=== PATIENT | female | born 1985 | race Caucasian/White ===

== ENCOUNTER 2018-05-16 19:29 | Emergency (ER) | payer MEDICAID ==
[2018-05-16 19:33] VITALS: BMI 41.5
[2018-05-16 19:41] VITALS: TEMP 98.6
[2018-05-16 20:31] LABS: URINE BILIRUBIN NEGATIVE (NEGATIVE); URINE BLOOD LARGE (NEGATIVE); URINE GLUCOSE (UA) NEGATIVE (NEGATIVE); URINE LEUKOCYTE ESTERASE MODERATE Leu/uL (NEGATIVE); URINE PROTEIN 30 mg/dL (<30 mg/dL)
[2018-05-16 20:32] LABS: URINE APPEARANCE SLIGHT-CLOUDY (CLEAR); URINE COLOR YELLOW (YELLOW)
[2018-05-16 20:36] LABS: URINE BACTERIA MOD (NEG); URINE WBC 20 - 25 /hpf (0-6)
--- NOTE | 2018-05-16 20:36 | ED PDOC ---
Arrival/HPI - General Chief Complaint: Female Genitourinary Time Seen by Provider: 05/16/18 19:47 Historian: Patient - History of Present Illness Narrative History of Present Illness (Text): 05/16/18 20:19 32 year old female, whose past medical history includes lupus, and 5 multiple ovarian cyst removals, who presents to the ED complaining of abdominal pain. Patient notes associated dysuria, urinary frequency, burning with urination, and white vaginal dicharge. Patient notes she was at [facility] for 3-4 days, 1 month ago for abdominal pain. Patient has a hysterectomy in 1 month. Patient states motrin and percocet gives minimal relief. Patient denies any nausea, vomiting, diarrhea, back pain, neck pain, or any other complaints. Time/Duration: Prior to Arrival Symptom Onset: Gradual Symptom Course: Unchanged Activities at Onset: Light Context: Home Past Medical History - Provider Review Nursing Documentation Reviewed: Yes - Infectious Disease Hx of Infectious Diseases: None - Tetanus Immunization Tetanus Immunization: Unknown - Cardiac Hx Congestive Heart Failure: Yes Hx Hypertension: Yes - Pulmonary Hx Asthma: Yes - Neurological Hx Neurological Disorder: No - HEENT Hx HEENT Disorder: No Hx Blind: No - Renal Hx Renal Disorder: No - Endocrine/Metabolic Hx Hypothyroidism: Yes Hx Systemic Lupus Erythematosus: Yes - Musculoskeletal/Rheumatological Hx Musculoskeletal Disorders: No - Gastrointestinal Hx Gastrointestinal Disorders: Yes Hx Fatty Liver Disease: Yes - Genitourinary/Gynecological Hx Genitourinary Disorders: Yes Other/Comment: ovarian cysts - removed/recurrent. ruptured cyst - Psychiatric Hx Depression: No Hx Substance Use: No - Surgical History Other/Comment: ovarian cyst removal - Anesthesia Hx Anesthesia: Yes Hx Anesthesia Reactions: No Hx Malignant Hyperthermia: No - Suicidal Assessment Feels Threatened In Home Enviroment: No Family/Social History - Physician Review Nursing Documentation Reviewed: Yes Family/Social History: Unknown Family HX Smoking Status: Never Smoked Hx Alcohol Use: No Hx Substance Use: No Hx Substance Use Treatment: No Allergies/Home Meds Allergies/Adverse Reactions: Allergies shellfish derived Allergy (Verified 05/16/18 19:33) ANGIOEDEMA Home Medications: Home Meds Medication Instructions Recorded Confirmed Acetaminophen with Codeine 1 tab PO Q6H PRN 05/16/18 05/16/18 [Tylenol with Codeine #3 Tablet] Cholecalciferol [Vitamin D 1000 IU] 2,000 unit PO DAILY 05/16/18 05/16/18 Ibuprofen [Motrin Tab] 1 tab PO TID PRN 05/16/18 05/16/18 Losartan Potassium [Losartan 1 tab PO DAILY 05/16/18 05/16/18 Potassium] Mycophenolate Mofetil [Cellcept] 1 tab PO BID 05/16/18 05/16/18 Prednisone [Steve] 1 tab PO BID 05/16/18 05/16/18 oxyCODONE/Acetaminophen [Percocet 1 tab PO Q4H PRN 05/16/18 05/16/18 5/325 mg Tab] Review of Systems - Physician Review All systems were reviewed & negative as marked: Yes - Review of Systems Constitutional: Normal Eyes: Normal ENT: Normal Respiratory: Normal. absent: SOB, Cough Cardiovascular: Normal. absent: Chest Pain Gastrointestinal: Normal, Abdominal Pain. absent: Nausea, Vomiting Genitourinary Female: Dysuria, Frequency, Other (burning with urination) Musculoskeletal: Normal. absent: Back Pain, Neck Pain Skin: Normal. absent: Rash Neurological: Normal. absent: Headache, Dizziness Endocrine: Normal Hemo/Lymphatic: Normal Psychiatric: Normal Physical Exam Vital Signs Reviewed: Yes Vital Signs Temp Pulse Resp BP Pulse Ox 05/17/18 03:03 20 99 05/17/18 01:58 88 20 138/90 99 05/16/18 19:40 98.6 F 77 18 145/101 H 97 Temperature: Afebrile Blood Pressure: Normal Pulse: Regular Respiratory Rate: Normal Appearance: Positive for: Well-Appearing, Non-Toxic, Comfortable Pain Distress: None Mental Status: Positive for: Alert and Oriented X 3 - Systems Exam Head: Present: Atraumatic, Normocephalic Pupils: Present: PERRL Extroacular Muscles: Present: EOMI Conjunctiva: Present: Normal Mouth: Present: Moist Mucous Membranes Neck: Present: Normal Range of Motion Respiratory/Chest: Present: Clear to Auscultation, Good Air Exchange. No: Respiratory Distress, Accessory Muscle Use Cardiovascular: Present: Regular Rate and Rhythm, Normal S1, S2. No: Murmurs Abdomen: No: Tenderness, Distention, Peritoneal Signs Back: Present: Normal Inspection Upper Extremity: Present: Normal Inspection. No: Cyanosis, Edema Lower Extremity: Present: Normal Inspection. No: Edema Neurological: Present: GCS=15, CN II-XII Intact, Speech Normal Skin: Present: Warm, Dry, Normal Color. No: Rashes Psychiatric: Present: Alert, Oriented x 3, Normal Insight, Normal Concentration Medical Decision Making ED Course and Treatment: 05/16/18 20:38 Impression: 32 year old female presents to the ED c/o abdominal pain. Plan: -- Chlamydia/GC RNA, TMA stat -- Urine Culture -- ED Urine -- US transvaginal Progress Notes: 05/16/18 22:34 US Pelvis, Transvaginal reviewed by radiologist, shows: CLINICAL HISTORY: 32 years old, female; Pain; Pelvic pain; Additional info: Pelvic pain, HX of ovarian cysts TECHNIQUE: Real-time transvaginal pelvic ultrasound (complete) with image documentation. Transvaginal imaging was used for better evaluation of the endometrium and adnexa. COMPARISON: No relevant prior studies available. FINDINGS: Uterus/cervix: Unremarkable. Normal endometrial stripe thickness. No myometrial mass. Right ovary: Unremarkable. No mass. Normal blood flow. Left ovary: Adjacent to the left ovary, there is a dilated tubular structure fiiled with fluid and thickened wall Question pyohydro salpinx. However correlate with beta-hCG level to exclude ectopic as well. Normal blood flow to the ovary.. Free fluid: Small amount of free fluid. IMPRESSION: Adjacent to the left ovary, there is a dilated tubular structure fiiled with fluid and thickened wall . Question pyohydro salpinx. However correlate with beta-hCG level to exclude ectopic as well. - Lab Interpretations Lab Results: Lab Results 05/16/18 20:23: Urine Color Yellow, Urine Appearance Slight-cloudy, Urine pH 6.0 , Ur Specific Lena 1.025, Urine Protein 30 H, Urine Glucose (UA) Negative, Urine Ketones Trace H, Urine Blood Large H, Urine Nitrate Positive H, Urine Bilirubin Negative, Urine Urobilinogen 1.0 H, Ur Leukocyte Esterase Moderate H, Urine RBC 2 - 5, Urine WBC 20 - 25, Ur Epithelial Cells 1 - 3, Urine Bacteria Mod - RAD Interpretation Radiology Orders: 05/16/18 20:18 TRANSVAGINAL [US] Stat - Medication Orders Current Medication Orders: Discontinued Medications Azithromycin (Zithromax) 1,000 mg PO STAT STA PRN Reason: Protocol Stop: 05/16/18 22:46 Last Admin: 08/09/18 23:38 Dose: 1,000 mg Doxycycline Hyclate 100 mg/ (Sodium Chloride) 100 mls @ 100 mls/hr IVPB STAT STA PRN Reason: Protocol Stop: 05/16/18 23:42 Ceftriaxone Sodium (Rocephin 2 Gm Ivpb) 2 gm in 100 mls @ 100 mls/hr IVPB STAT STA PRN Reason: Protocol Stop: 05/16/18 23:42 Last Admin: 05/16/18 23:21 Dose: 100 mls/hr eMAR Start Stop Document 05/16/18 23:21 SS (Rec: 05/16/18 23:21 SS [id number]) Intravenous Solution Start Date 05/16/18 Start Time 23:21 End Date 05/17/18 End time 00:21 Total Infusion Time 60 Ketorolac Tromethamine (Toradol) 30 mg IVP STAT STA Stop: 05/16/18 23:18 Last Admin: 05/16/18 23:38 Dose: 30 mg MAR Pain Assessment Document 05/16/18 23:38 SS (Rec: 05/16/18 23:39 SS [id number]) Pain Reassessment Is this a pain reassessment? Yes Sleep Is patient sleeping during reassessment? No Presence of Pain Presence of Pain Yes Location Upper or Lower Lower Pain Location Body Site Abdomen IVP Administration Document 05/16/18 23:38 SS (Rec: 05/16/18 23:39 SS [id number]) Charges for Administration # of IVP Administrations 1 Oxycodone/Acetaminophen (Percocet 5/325 Mg Tab) 2 tab PO STAT STA Stop: 05/16/18 20:58 Last Admin: 05/16/18 21:13 Dose: 2 tab MAR Pain Assessment Document 05/16/18 21:13 SS (Rec: 05/16/18 21:14 SS [id number]) Pain Reassessment Is this a pain reassessment? No Sleep Is patient sleeping during reassessment? No Presence of Pain Presence of Pain Yes Pain Scale Used Pain Scale Used Numeric Location Upper or Lower Lower Pain Location Body Site Abdomen - Scribe Statement The provider has reviewed the documentation as recorded by the Scribe Maggie Esquivel All medical record entries made by the Scribe were at my direction and personally dictated by me. I have reviewed the chart and agree that the record accurately reflects my personal performance of the history, physical exam, medical decision making, and the department course for this patient. I have also personally directed, reviewed, and agree with the discharge instructions and disposition. Disposition/Present on Arrival - Present on Arrival Any Indicators Present on Arrival: No History of DVT/PE: No History of Uncontrolled Diabetes: No Urinary Catheter: No History of Decub. Ulcer: No History Surgical Site Infection Following: None - Disposition Have Diagnosis and Disposition been Completed?: Yes Diagnosis: Pelvic infection, Urinary tract infection Disposition: HOME/ ROUTINE Disposition Time: 01:00 Patient Plan: Discharge Condition: GOOD Discharge Instructions (ExitCare): Pelvic Inflammatory Disease (DC), Kidney Infection (DC) Additional Instructions: Ms Briseno - You have a bad UTI and a pelvic infection. You need to see the manager desktop who is supposed to do your hysterectomy tomorrow (Sunday), certainly no later than Sunday. Take the antibiotics, zofran is for nausea, percocet is for pain. Return to us if worse or new symptoms occur. Best- Dr. Niles Dyer Prescriptions: Cephalexin [Keflex] 500 mg PO QID #40 capsule Doxycycline Monohydrate 100 mg PO BID #20 capsule Ondansetron ODT [Zofran ODT] 8 mg PO TID #30 odt oxyCODONE/Acetaminophen [Percocet 5/325 mg Tab] 1 tab PO QID #20 tab Forms: [facility] (Georgian), SCHOOL NOTE, WORK NOTE
[2018-05-16] MEDS ORDERED: Oxycodone/Acetaminophen 5/325 mg Tab PO STA (20:57)
[2018-05-16] MEDS ORDERED: cefTRIAXone 2 GM IN NS 2 GM/100 ML BAG IVPB STA (22:43)
[2018-05-17 01:59] VITALS: BP 138/90; PULSE 88; RESP 20; O2SAT 99
--- NOTE | 2018-05-17 12:07 | US ---
Date of service: 05/16/2018 HISTORY: Pelvic pain. History of ovarian cysts. LMP 05/03/2018. COMPARISON: None available. TECHNIQUE: Transvaginal only. Real -time technique with 2D, duplex and color Doppler FINDINGS: UTERUS: Measures 5.4 x 5.9 x 8.7 cm. Normal in size and appearance. No fibroid or other mass lesion seen. ENDOMETRIUM: Measures 7.6 mm in diameter. No ultrasound findings to suggest gestational sac, fluid, debris, mass or polyp or other pathologic process within the endometrium. CERVIX: No cervical abnormality identified. RIGHT OVARY: Measures 1.7 x 2.3 x 2.3 cm. No solid mass. Normal flow. LEFT OVARY: Measures 2 x 3.6 x 5 cm. No solid mass. Normal flow. Adjacent to the left ovary is tubular structure containing fluid and a thickened wall likely a hydrosalpinx. FREE FLUID: No significant free fluid noted. OTHER FINDINGS: None. IMPRESSION: Unremarkable uterus and endometrial echo complex. Normal right ovary/ flow documented to the right adnexa. Tubular structure adjacent to the left adnexa likely hydrosalpinx. Correlation with beta HCG advised to exclude ectopic gestation. Concordant results (preliminary interpretation) provided by [facility]. Procedure Completed: 21:57. Preliminary ([facility]) Report: Dictated and Authenticated: 22:16. Final Interpretation: 12:05. May 17, 2018.
== END 2018-05-17 03:03 | disposition home or self-care (01) ==
LOC: ED 19:29
DX: N39.0 Urinary tract infection, site not specified (principal); N73.9 Female pelvic inflammatory disease, unspecified
CPT/HCPCS: 76830; 81001; 81025; 87086; 87181; 87491; 87591; 96365; 96375; 99284; J0696; J1885

== ENCOUNTER 2019-02-06 18:39 | Emergency (ER) | payer MEDICAID ==
[2019-02-06 18:39] VITALS: BMI 41.5
[2019-02-06 19:00] VITALS: PULSE 72; TEMP 99; O2SAT 100
[2019-02-06 20:34] LABS: URINE BILIRUBIN NEGATIVE (NEGATIVE); URINE BLOOD NEGATIVE (NEGATIVE); URINE GLUCOSE (UA) NEGATIVE (NEGATIVE); URINE LEUKOCYTE ESTERASE NEGATIVE Leu/uL (NEGATIVE); URINE PROTEIN NEGATIVE mg/dL (<30 mg/dL)
[2019-02-06 20:35] LABS: URINE APPEARANCE CLEAR (CLEAR); URINE COLOR LIGHT YELLOW (YELLOW)
--- NOTE | 2019-02-06 20:40 | ED PDOC ---
Arrival/HPI - General Chief Complaint: Abdominal Pain Time Seen by Provider: 02/06/19 19:29 Historian: Patient - History of Present Illness Narrative History of Present Illness (Text): 02/06/19 20:29 33 yo with past medical history of lupus, ovarian cyst, presents the emergency room for constant lower abdominal pain associated with light vaginal bleeding that started suddenly today. Patient states that her last menstrual period was on January 31 and lasted for 5 days. She has that she took Motrin 800 mg 6 hours ago with minimal improvement of her symptoms prompting ER visit. She further adds that she has a history of bilateral ovarian cyst and 2 months ago she was seen at [facility] for similar symptoms and she was told that the cyst on the right side had ruptured. Otherwise she reports history of abd ominal surgeries, she had 3 ovarian cyst removed and she has had 2 c-sections. Otherwise she states she has no fever, nausea, vomiting, diarrhea, urinary symptoms. Past Medical History - Provider Review Primary Care Provider: Sahara Cisneros - Infectious Disease Hx of Infectious Diseases: None - Tetanus Immunization Tetanus Immunization: Unknown - Reproductive Menopause: No - Cardiac Hx Congestive Heart Failure: Yes Hx Hypertension: Yes - Pulmonary Hx Asthma: Yes - Neurological Hx Neurological Disorder: No - HEENT Hx HEENT Disorder: No Hx Blind: No - Renal Hx Renal Disorder: No - Endocrine/Metabolic Hx Hypothyroidism: Yes Hx Systemic Lupus Erythematosus: Yes - Musculoskeletal/Rheumatological Hx Musculoskeletal Disorders: No - Gastrointestinal Hx Gastrointestinal Disorders: Yes Hx Fatty Liver Disease: Yes - Genitourinary/Gynecological Hx Genitourinary Disorders: Yes Other/Comment: ovarian cysts - removed/recurrent. ruptured cyst - Psychiatric Hx Depression: No Hx Substance Use: No - Surgical History Other/Comment: ovarian cyst removal - Anesthesia Hx Anesthesia: Yes Hx Anesthesia Reactions: No Hx Malignant Hyperthermia: No - Suicidal Assessment Feels Threatened In Home Enviroment: No Family/Social History Family/Social History: No Known Family HX Smoking Status: Never Smoked Hx Alcohol Use: No Hx Substance Use: No Hx Substance Use Treatment: No Allergies/Home Meds Allergies/Adverse Reactions: Allergies shellfish derived Allergy (Verified 05/16/18 19:33) ANGIOEDEMA Home Medications: Home Meds Medication Instructions Recorded Confirmed Cholecalciferol [Vitamin D 1000 IU] 2,000 unit PO DAILY 05/16/18 02/06/19 Ibuprofen [Motrin Tab] 1 tab PO TID PRN 05/16/18 02/06/19 Losartan Potassium 1 tab PO DAILY 05/16/18 02/06/19 Mycophenolate Mofetil [Cellcept] 1 tab PO BID 05/16/18 02/06/19 Prednisone [Steve] 10 mg PO BID 05/16/18 02/06/19 Albuterol HFA [Ventolin HFA 90 0.09 mg IH PRN PRN 02/06/19 02/06/19 mcg/actuation (8 g)] Montelukast [Singulair] 10 mg PO 02/06/19 Review of Systems - Review of Systems Constitutional: absent: Fatigue, Fevers Respiratory: absent: SOB, Cough Cardiovascular: absent: Chest Pain, Palpitations Gastrointestinal: Abdominal Pain. absent: Diarrhea, Nausea, Vomiting Genitourinary Female: Vaginal Bleeding. absent: Dysuria, Frequency, Hematuria, Vaginal Discharge Musculoskeletal: absent: Arthralgias, Back Pain, Neck Pain Skin: absent: Rash, Pruritis, Skin Lesions Neurological: absent: Headache, Dizziness Physical Exam Vital Signs Temp Pulse Resp BP Pulse Ox 02/06/19 18:56 99 F 72 18 173/94 H 100 Temperature: Afebrile Blood Pressure: Hypertensive Pulse: Regular Respiratory Rate: Normal Appearance: Positive for: Well-Appearing, Non-Toxic, Comfortable Pain Distress: Moderate Mental Status: Positive for: Alert and Oriented X 3 - Systems Exam Head: Present: Atraumatic, Normocephalic Pupils: Present: PERRL Extroacular Muscles: Present: EOMI Conjunctiva: Present: Normal Mouth: Present: Moist Mucous Membranes Neck: Present: Normal Range of Motion Respiratory/Chest: Present: Clear to Auscultation, Good Air Exchange. No: Respiratory Distress, Accessory Muscle Use Cardiovascular: Present: Regular Rate and Rhythm, Normal S1, S2. No: Murmurs Abdomen: Present: Tenderness (+lower abd tenderness), Normal Bowel Sounds. No: Distention, Peritoneal Signs, Rebound, Guarding, McBurney's Point Tender, Mass/Organomegaly Back: Present: Normal Inspection. No: CVA Tenderness, Midline Tenderness Upper Extremity: Present: Normal Inspection. No: Cyanosis, Edema Lower Extremity: Present: Normal Inspection. No: Edema Neurological: Present: GCS=15, CN II-XII Intact, Speech Normal Skin: Present: Warm, Dry, Normal Color. No: Rashes Psychiatric: Present: Alert, Oriented x 3, Normal Insight, Normal Concentration Medical Decision Making ED Course and Treatment: 02/06/19 20:41 Previous medical records reviewed, patient was seen in this emergency room on 05/16/2018, during that ER visit patient had a transvaginal ultrasound which showed possible pyohydrosalpinx, she was diagnosed with PID and treated with Keflex and doxycycline, she had a gonorrhea and Chlamydia test done which was negative. Plan : - IV - Labs - UA, urine cx - Toradol - Reassess / disposition - TV US Urine hCG : negative Labs reviewed, platelets are noted to be low at 64, rest of the labs are within normal limits. Transvaginal ultrasound shows bilateral ovarian cyst, cyst on the left appears larger than the right, there is no ovarian torsion, there is good Doppler flow to both ovaries, there is hydrosalpinx noted to the left fallopian tube, and there is fluid in the cul-de-sac. On reevaluation, patient reports improvement of symptoms. On exam, patient remains awake alert and oriented 3 in no acute distress. Diagnostic results discussed with the patient in great detail. Advised that the hydrosalpinx on the left fallopian tube is not a new finding and was noted in her previous ultrasound in May 16, 2018. Patient notified that during that time she also was diagnosed, treated for PID and had a negative gonorrhea and chlamydia test. Patient states that she is still sexually active with the same partner and has not had any changes with her sexual activity or her partner. Patient states that she has a h/o lupus, which she takes mycophentolate and prednisone for. Both medications do not seem to cause thrombocytopenia, and the low platelet may be due to lupus. Patient advised to see her pmd or her target aircraft controller regarding her low platelet count. Advised to follow up with primary care physician or progress man in 1-2 days without fail regarding US results and with her target aircraft controller regarding her low platelet count. Return to the emergency room at any time for any new or worsening symptoms. Patient states she fully agrees with and understands discharge instructions. States that she agrees with the plan and disposition. Verbalized and repeated discharge instructions and plan. I have given the patient opportunity to ask any additional questions. 02/06/19 22:32 02/06/2019 21:45 Transvaginal Ultrasound IMPRESSION: 1. Bilateral ovarian cysts. 2. Left sided hydrosalpinx. 3. No ovarian torsion. Dictator: Jose Guadalupe Jamil MD - RAD Interpretation Radiology Orders: 02/06/19 20:16 TRANSVAGINAL [US] Stat - Medication Orders Current Medication Orders: Discontinued Medications Ketorolac Tromethamine (Toradol) 30 mg IVP STAT STA Stop: 02/06/19 20:17 - PA / ROUTE DELIVERY MANAGER / Resident Statement MD/DO has reviewed & agrees with the documentation as recorded. Disposition/Present on Arrival - Present on Arrival Any Indicators Present on Arrival: No History of DVT/PE: No History of Uncontrolled Diabetes: No Urinary Catheter: No History of Decub. Ulcer: No History Surgical Site Infection Following: None - Disposition Have Diagnosis and Disposition been Completed?: Yes Diagnosis: Abdominal pain, Hydrosalpinx, Thrombocytopenia Disposition: HOME/ ROUTINE Disposition Time: 22:00 Patient Plan: Discharge Condition: STABLE Discharge Instructions (ExitCare): Acute Abdomen (Belly Pain), Essential Thrombocythemia Additional Instructions: Thank you for letting us take care of you today. You were treated for abdominal pain, hydrosalpinx, thrombocytopenia. The emergency medical care you received today was directed at your acute symptoms. It may take several days for your symptoms to resolve. Return to the Emergency Department if your symptoms worsen, do not improve, or if you have any other problems. Please contact your doctor in 2 days for re-evaluation and follow up. Bring any paperwork you were given at discharge with you along with any medications you are taking to your follow up visit. Our treatment cannot replace ongoing medical care by a primary care provider (PCP) outside of the emergency department. Thank you for allowing the [facility] team to be part of your care today. Forms: [employer] (Korean), WORK NOTE
[2019-02-06 20:42] LABS: BASO # 0.04 K/mm3 (0.0-2.0); BASO % 0.4 % (0.0-3.0); EOS # 0.2 (0.0-0.7); HEMOGLOBIN 11.9 g/dL (12.0-16.0); LYMPH % 19.5 % (22.0-35.0); MEAN CELL VOLUME 82.7 fl (80.0-105.0); MEAN CORPUSCULAR HEMOGLOBIN 26.4 pg (25.0-35.0); MEAN CORPUSCULAR HGB CONC 31.9 g/dl (31.0-37.0); MEAN PLATELET VOLUME 11.7 fl (7.0-11.0); MONO % 9.8 % (1.0-6.0); RBC 4.51 10^6/uL (3.5-6.1); RED CELL DISTRIBUTION WIDTH 14.9 % (11.5-14.5); WHITE BLOOD COUNT 10.2 10^3/uL (4.5-11.0)
[2019-02-06 20:51] LABS: ALT/SGPT 21 U/L (7-56); AST/SGOT 36 U/L (14-36); BLOOD UREA NITROGEN 10 mg/dL (7-21); CALCIUM 8.8 mg/dL (8.4-10.5); GFR NON-AFRICAN AMERICAN > 60; LIPASE 29 U/L (23-300)
[2019-02-06 22:24] VITALS: BP 155/63; RESP 14
--- NOTE | 2019-02-07 09:39 | US ---
Date of service: 02/06/2019 HISTORY: pelvic pain, h/o ovarian cyst r/o torsion COMPARISON: None available. TECHNIQUE: Real-time transabdominal pelvic ultrasound was performed. In addition a transvaginal pelvic ultrasound was necessary to better depict pelvic anatomy. FINDINGS: UTERUS: Measures 8.6 x 5.2 x 4.7 cm. ENDOMETRIUM: Measures 6 mm in diameter. CERVIX: No cervical abnormality identified. RIGHT OVARY: Measures 2.3 x 1.9 x 1.8 cm. Blood flow is demonstrated. 0.9 x 0.7 x 0.7 cm follicle/cyst. LEFT OVARY: Measures 4.1 x 2.8 x 2.4 cm. Blood flow is demonstrated. 0.9 x 0.6 x 0.9 cm follicle/cyst. Left adnexal tubular structure consistent with hydrosalpinx measures approximately 2.0 x 0.8 x 0.8 cm. FREE FLUID: Small free fluid noted. OTHER FINDINGS: None. IMPRESSION: Left hydrosalpinx. Small pelvic free fluid. Preliminary impression was provided by [employer].
== END 2019-02-06 22:23 | disposition home or self-care (01) ==
LOC: ED 18:39
DX: D69.6 Thrombocytopenia, unspecified (principal); R10.30 Lower abdominal pain, unspecified; N70.11 Chronic salpingitis; E03.9 Hypothyroidism, unspecified; I50.9 Heart failure, unspecified; I10 Essential (primary) hypertension; M32.9 Systemic lupus erythematosus, unspecified
CPT/HCPCS: 76830; 80053; 81003; 81025; 83690; 85025; 87086; 96374; 99284; J1885